=== PATIENT | female | born 2005 | race Two or more races ===

== ENCOUNTER 2024-04-14 19:03 | Emergency (ER) | payer OTHER ==
[~2024-04-14] VITALS: Ht 162.6 cm; Wt 68.5 kg
[2024-04-14] MEDS ORDERED: KETOROLAC TROMETHAMINE 30 MG VIAL IV ONE (20:00)
[2024-04-14] MEDS ORDERED: KETOROLAC TROMETHAMINE 30 MG VIAL ONE (20:23)
== END 2024-04-14 21:21 | disposition home or self-care (01) ==
LOC: ER 19:05 → EMR PED 19:05
DX: S83.8X2A Sprain of other specified parts of left knee, initial encounter (principal); X58.XXXA Exposure to other specified factors, initial encounter; Y93.66 Activity, soccer; Y92.214 College as the place of occurrence of the external cause; Y99.8 Other external cause status; Z91.013 Allergy to seafood